=== PATIENT | female | born 1970 | race Caucasian/White ===

== ENCOUNTER 2016-10-25 19:18 | Emergency (ER) | payer MEDICARE, MEDICAID ==
[2016-10-25 19:28] VITALS: BP 158/94
[2016-10-25] MEDS ORDERED: Nitrofurantoin Monohydrate/Macrocrystalline 100 MG Cap PO ONE (19:47)
--- NOTE | 2016-10-25 19:50 | EDM.PDOC ---
ED HPI RENAL/ - General Chief Complaint: Genitourinary Problem Stated Complaint: UTI Time Seen by Provider: 10/25/16 19:35 Source of Information: Reports: Patient, RN notes reviewed - History of Present Illness INITIAL COMMENTS - FREE TEXT/NARRATIVE: 45 year old female with onset of voiding dysuria and frequency a few days ago, worse today., chills, no definite fever, no vomiting or major back discomfort. Hx of previous UTI. - Related Data Allergies/ADRs: Allergies Allergy/AdvReac Type Severity Reaction Status Date / Time acetaminophen [From Percocet] Allergy Hives Verified 10/25/16 19:29 meperidine HCl [From Demerol] Allergy Hives Verified 10/25/16 19:29 mold Allergy Chills Verified 10/25/16 19:29 oxycodone HCl [From Percocet] Allergy Hives Verified 10/25/16 19:29 peanut Allergy Anaphylactic Verified 10/25/16 19:29 Shock pollen extracts Allergy Irritabilit Verified 10/25/16 19:29 y Sulfa (Sulfonamide Allergy Itching Verified 10/25/16 19:29 Antibiotics) erythromycin base AdvReac Vomiting Verified 10/25/16 19:29 [Erythromycin Base] Home Meds: Home Meds Topiramate [Topamax] 100 mg PO DAILY 04/17/14 [History] Montelukast Sodium [Singulair] 10 mg PO DAILY 08/26/14 [History] Albuterol [Proventil Neb Soln] 2.5 mg INH Q6H PRN 01/16/15 [History] Potassium Chloride 10 meq PO BID 01/16/15 [History] traZODone 200 mg PO BEDTIME 01/16/15 [History] Ciclesonide [Omnaris] 1 spray INH BID 05/26/15 [History] EPINEPHrine [Epipen 2-Enrico] 0.3 mg IJ ASDIRECTED #1 ml 05/26/15 [Rx] Naltrexone 5 mg PO BEDTIME 05/29/16 [History] Progerstone Cream 1 gr TOP TID 05/29/16 [History] Nitrofurantoin Monohyd/M-Cryst [Macrobid 100 mg Capsule] 100 mg PO Q12HR #10 capsule 10/25/16 [Rx] Past Medical History HEENT History: Reports: Allergic rhinitis Respiratory History: Reports: Asthma Gastrointestinal History: Reports: Irritable bowel syndrome Genitourinary History: Reports: Other (see below) 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 Musculoskeletal History: Reports: Osteoarthritis Neurological History: Reports: Migraines Endocrine/Metabolic History: Reports: Hypothyroidism - Past Surgical History HEENT Surgical History: Reports: Myringotomy w tube(s), Tonsillectomy GI Surgical History: Reports: Appendectomy Female Surgical History: Reports: Hysterectomy Musculoskeletal Surgical History: Reports: Arthroscopic knee, ORIF Social & Family History - Family History Family Medical History: Noncontributory - Tobacco Use Smoking Status *Q: Never Smoker Second Hand Smoke Exposure: No - Caffeine Use Caffeine Use: Reports: Coffee - Alcohol Use Days Per Week of Alcohol Use: 0 - Recreational Drug Use Recreational Drug Use: No - Living Situation & Occupation Living situation: Reports: single, alone 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 Denies: fever HEENT: Denies: Sinus problem, Throat pain Respiratory: Denies: shortness of breath Cardiovascular: Denies: Chest pain GI/Abdominal: Reports: Nausea (occasional mild). Denies: Abdominal pain, Diarrhea, Vomiting Musculoskeletal: Denies: back pain, joint pain Skin: Reports: no symptoms Neurological: Reports: no symptoms ED EXAM, RENAL/ - Physical Exam Exam: See Below General Appearance: alert, mild distress Throat/Mouth: Normal inspection, Normal oropharynx Head: No: facial swelling Neck: supple, full range of motion Respiratory/Chest: no respiratory distress, lungs clear, normal breath sounds Cardiovascular: regular rate, rhythm Back Exam: No: CVA tenderness (L), CVA tenderness (R) Extremities: normal inspection Neurological: alert, oriented Course - Vital Signs Last Recorded V/S: Last Vital Signs Temp 97.7 F 10/25/16 19:26 Pulse 66 10/25/16 19:26 Resp 16 10/25/16 19:26 BP 158/94 H 10/25/16 19:26 Pulse Ox 100 10/25/16 19:26 - Orders/Labs/Meds Orders: Active Orders 24 hr Category Date Time Status CULTURE URINE [RM] Stat Lab 10/25/16 19:55 Received Labs: Laboratory Tests 10/25/16 Range/Units 19:55 Urine Color Dark yellow (Yellow) Urine Appearance Clear (Clear) Urine pH 7.0 (5.0-8.0) Ur Specific [place] 1.010 (1.005-1.030) Urine Protein Negative (Negative) Urine Glucose (UA) Negative (Negative) Urine Ketones Negative (Negative) Urine Occult Blood Negative (Negative) Urine Nitrite Positive H (Negative) Urine Bilirubin Negative (Negative) Urine Urobilinogen 0.2 (0.2-1.0) Ur Leukocyte Esterase Negative (Negative) Meds: Medications Discontinued Medications Generic Name Dose Route Start Last Admin Trade Name Freq PRN Reason Stop Dose Admin Nitrofurantoin Macrocrystals 100 mg 10/25/16 19:47 10/25/16 19:59 Macrobid PO 10/25/16 19:48 100 mg ONETIME ONE Administration Departure - Departure Time of Disposition: 20:10 Disposition: Home, Self-Care 01 Condition: fair Clinical Impression: UTI, Urinary tract infectious disease Prescriptions: Nitrofurantoin Monohyd/M-Cryst [Macrobid 100 mg Capsule] 100 mg PO Q12HR #10 capsule Instructions: Urinary Tract Infection, Adult, [id number], Urinary Tract Infection, Adult Referrals: Marly Tompkins NP [Primary Care Provider] - Forms: ED Department Discharge Additional Instructions: drink plenty of fluids, continue azo as needed, Macrobid antibiotic twice daily for the next 5 days, you have been given your first dose here in the ED. Follow up clinic if not much better within 2 to 3 days as expected, return to ED if sx worsening in any way. - My Orders Last 24 Hours: My Active Orders 10/25/16 19:55 CULTURE URINE [] Stat - Assessment/Plan Last 24 Hours: My Active Orders 10/25/16 19:55 CULTURE URINE [] Stat
== END 2016-10-25 20:30 | disposition home or self-care (01) ==
LOC: JD.ED 19:18
DX: N39.0 Urinary tract infection, site not specified (principal); J45.909 Unspecified asthma, uncomplicated; M19.90 Unspecified osteoarthritis, unspecified site; E03.9 Hypothyroidism, unspecified; Z79.899 Other long term (current) drug therapy; Z98.890 Other specified postprocedural states; Z90.49 Acquired absence of other specified parts of digestive tract; Z90.710 Acquired absence of both cervix and uterus; Z88.6 Allergy status to analgesic agent; Z91.010 Allergy to peanuts; Z88.2 Allergy status to sulfonamides; Z88.1 Allergy status to other antibiotic agents; Z91.09 Other allergy status, other than to drugs and biological substances
CPT/HCPCS: 81003; 87086; 99284; A9270; 99283

== ENCOUNTER 2016-10-27 14:59 | Emergency (ER) | payer MEDICARE, MEDICAID ==
[2016-10-27] MEDS ORDERED: Sodium Chloride 0.9% 10 ML Syringe FLUSH PRN (15:27)
[2016-10-27] MEDS ORDERED: Ketorolac 30 MG/ML SDV IVPUSH ONE (15:28)
--- NOTE | 2016-10-27 15:42 | EDM.PDOC ---
ED HPI GENERAL MEDICAL PROBLEM - General Chief Complaint: Abdominal Pain Stated Complaint: ABDOMINAL PAIN Time Seen by Provider: 10/27/16 15:20 Source of Information: Reports: Patient History Limitations: Reports: No limitations - History of Present Illness INITIAL COMMENTS - FREE TEXT/NARRATIVE: Patient presents for evaluation and treatment of multiple different complaints. Patient reports that her symptoms started on . She states that she was complaining of a urinary tract infection symptoms. She was seen in our ER and started on Macrobid. Patient reports that since being seen she is not feeling better. She currently is complaining of exhaustion, fevers, chills, decreased appetite, dysuria, bloating, left-sided back pain, left lower quadrant pain, coughing and a sore throat. Patient reports that she has felt warm but she has not taken her temperature at home. She has not had any diarrhea, constipation or vaginal discharge. Her last bowel movement was 2 days ago. 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 She states that she had influenza earlier this year. She did not get a flu vaccine. Patient reports past surgical history partial hysterectomy in 2010. Patient denies any recent sexual activity. She denies any chance of any STDs. Abdomen Pain Score (Numeric/FACES): 10 - Related Data Allergies Allergy/AdvReac Type Severity Reaction Status Date / Time acetaminophen [From Percocet] Allergy Hives Verified 10/27/16 15:14 meperidine HCl [From Demerol] Allergy Hives Verified 10/27/16 15:14 mold Allergy Chills Verified 10/27/16 15:14 oxycodone HCl [From Percocet] Allergy Hives Verified 10/27/16 15:14 peanut Allergy Anaphylactic Verified 10/27/16 15:14 Shock pollen extracts Allergy Irritabilit Verified 10/27/16 15:14 y Sulfa (Sulfonamide Allergy Itching Verified 10/27/16 15:14 Antibiotics) erythromycin base AdvReac Vomiting Verified 10/27/16 15:14 [Erythromycin Base] Home Meds: Home Meds Topiramate [Topamax] 100 mg PO DAILY 04/17/14 [History] Montelukast Sodium [Singulair] 10 mg PO DAILY 08/26/14 [History] Albuterol [Proventil Neb Soln] 2.5 mg INH Q6H PRN 01/16/15 [History] Potassium Chloride 10 meq PO BID 01/16/15 [History] traZODone 200 mg PO BEDTIME 01/16/15 [History] Ciclesonide [Omnaris] 1 spray INH BID 05/26/15 [History] EPINEPHrine [Epipen 2-Enrico] 0.3 mg IJ ASDIRECTED #1 ml 05/26/15 [Rx] Naltrexone 5 mg PO BEDTIME 05/29/16 [History] Progerstone Cream 1 gr TOP TID 05/29/16 [History] Nitrofurantoin Monohyd/M-Cryst [Macrobid 100 mg Capsule] 100 mg PO Q12HR #10 capsule 10/25/16 [Rx] Ciprofloxacin [Ciprofloxacin HCl] 500 mg PO BID #14 tablet 10/27/16 [Rx] Past Medical History HEENT History: Reports: Allergic rhinitis Respiratory History: Reports: Asthma Gastrointestinal History: Reports: Irritable bowel syndrome Genitourinary History: Reports: UTI, recurrent 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 Musculoskeletal History: Reports: Osteoarthritis Neurological History: Reports: Migraines Endocrine/Metabolic History: Reports: Hypothyroidism - Past Surgical History HEENT Surgical History: Reports: Myringotomy w tube(s), Tonsillectomy GI Surgical History: Reports: Appendectomy Female Surgical History: Reports: Hysterectomy Musculoskeletal Surgical History: Reports: Arthroscopic knee, ORIF Social & Family History - Family History Family Medical History: Noncontributory - Tobacco Use Smoking Status *Q: Former Smoker Second Hand Smoke Exposure: No - Caffeine Use Caffeine Use: Reports: Coffee - Alcohol Use Days Per Week of Alcohol Use: 0 - Recreational Drug Use Recreational Drug Use: No - Living Situation & Occupation Living situation: Reports: single, alone 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 Denies: Constipation, Diarrhea, Nausea, Vomiting : Reports: flank pain. Denies: hematuria Musculoskeletal: Reports: back pain Neurological: Reports: headache ED EXAM, GENERAL - Physical Exam Exam: See Below Exam Limited By: No limitations General Appearance: alert, WD/WN, no apparent distress Ears: normal external exam, normal canal, hearing grossly normal, normal TMs Nose: normal inspection Throat/Mouth: Normal inspection, Normal lips, Normal teeth, Normal gums, Normal oropharynx, Normal voice, No airway compromise Neck: normal inspection. No: lymphadenopathy (L), lymphadenopathy (R) Respiratory/Chest: no respiratory distress, lungs clear, normal breath sounds Cardiovascular: normal peripheral pulses, regular rate, rhythm, no murmur GI/Abdominal: normal bowel sounds, soft, non tender Back Exam: normal inspection. No: CVA tenderness (L), CVA tenderness (R) Neurological: alert, oriented, normal cognition Psychiatric: normal affect, normal mood Skin Exam: Warm, Dry, Normal color Course - Vital Signs Last Recorded V/S: Last Vital Signs Temp 35.8 C 10/27/16 15:11 Pulse 60 10/27/16 17:30 Resp 12 10/27/16 17:30 BP 125/81 10/27/16 17:30 Pulse Ox 100 10/27/16 17:30 - Orders/Labs/Meds Labs: Laboratory Tests 10/27/16 10/27/16 10/27/16 Range/Units 15:17 15:17 16:15 WBC 11.73 H (3.98-10.04) K/mm3 RBC 4.17 (3.98-5.22) M/mm3 Hgb 13.4 (11.2-15.7) gm/L Hct 40.9 (34.1-44.9) % MCV 98.1 H (79.4-94.8) fl MCH 32.1 (25.6-32.2) pg MCHC 32.8 (32.2-35.5) g/dl RDW Std Deviation 43.3 (36.4-46.3) fL Plt Count 249 (182-369) K/mm3 MPV 10.5 (9.4-12.3) fl Neutrophils % (Manual) 69 H (40-60) % Band Neutrophils % 0 (0-10) % Lymphocytes % (Manual) 25 (20-40) % Atypical Lymphs % 0 % Monocytes % (Manual) 6 (2-10) % Eosinophils % (Manual) 0 L (0.7-5.8) % Basophils % (Manual) 0 L (0.1-1.2) Platelet Estimate Adequate Plt Morphology Comment Normal RBC Morph Comment Normal Sodium 143 (136-145) mEq/L Potassium 3.2 L (3.5-5.1) mEq/L Chloride 108 H (98-107) mEq/L Carbon Dioxide 27 (21-32) mEq/L Anion Gap 11.2 (5-15) BUN 15 (7-18) mg/dL Creatinine 0.7 (0.55-1.02) mg/dL Est Cr Clr Drug Dosing TNP Estimated GFR (MDRD) > 60 (>60) mL/min BUN/Creatinine Ratio 21.4 H (14-18) Glucose 63 L (74-106) mg/dL Calcium 8.7 (8.5-10.1) mg/dL Total Bilirubin 0.2 (0.2-1.0) mg/dL AST 10 L (15-37) U/L ALT 27 (14-59) U/L Alkaline Phosphatase 27 L (46-116) U/L C-Reactive Protein < 0.2 (<1.0) mg/dL Total Protein 6.5 (6.4-8.2) g/dl Albumin 3.7 (3.4-5.0) g/dl Globulin 2.8 gm/dL Albumin/Globulin Ratio 1.3 (1-2) Lipase 235 (73-393) U/L Urine Color Yellow (Yellow) Urine Appearance Cloudy H (Clear) Urine pH 7.5 (5.0-8.0) Ur Specific [place] 1.020 (1.005-1.030) Urine Protein Negative (Negative) Urine Glucose (UA) Negative (Negative) Urine Ketones Negative (Negative) Urine Occult Blood Negative (Negative) Urine Nitrite Positive H (Negative) Urine Bilirubin Negative (Negative) Urine Urobilinogen 0.2 (0.2-1.0) Ur Leukocyte Esterase Negative (Negative) Urine RBC 0-5 (0-5) /hpf Urine WBC 0-5 (0-5) /hpf Ur Epithelial Cells 0-5 (0-5) /hpf Amorphous Sediment Many H (NOT SEEN) /hpf Urine Bacteria Moderate H (FEW) /hpf Urine Mucus Not seen (FEW) /hpf Meds: Medications Discontinued Medications Generic Name Dose Route Start Last Admin Trade Name Freq PRN Reason Stop Dose Admin Ketorolac Tromethamine 30 mg 10/27/16 15:28 10/27/16 15:36 Toradol IVPUSH 10/27/16 15:29 30 mg ONETIME ONE Administration Sodium Chloride 10 ml 10/27/16 15:27 10/27/16 15:36 Saline Flush FLUSH 10 ml ASDIRECTED PRN Administration Keep Vein Open - Radiology Interpretation Free Text/Narrative:: Chest xray shows a small effusion to the left costophrenic angle; no acute changes, no change from recent chest xray - Re-Assessments/Exams Free Text/Narrative Re-Assessment/Exam: 10/27/16 17:16 Lab studies have returned. It When blood cell count is mildly elevated at 11.73 with no bandemia, hemoglobin 13.4 and platelets are 249. CRP is within normal limits at less than 0.2. Lipase is 235. Sodium is 143, potassium is 3.2 and chloride is 108. Anion gap is 11.2. Glucose is 63. UA is positive for nitrates and moderate bacteria. Negative leuks. Strep is a [place]. I reviewed the chest x-ray and lab results with the patient. She is currently taking Pyridium which may have caused the false nitrates but does not explain the moderate amount of bacteria seen. Reviewing her previous urine cultures she has always had mixed contamination. I did give her some crackers and juice in the ER for her low blood sugar. Given her symptoms I am concerned that she may be developing a kidney infection I will switch her from Macrobid to Cipro and have her followup with her primary care provider this week. I will also start her on Flagyl for few clue so seen on wet prep. Will discharge home at this time. Departure - Departure Time of Disposition: 17:14 Disposition: Home, Self-Care 01 Condition: fair Clinical Impression: UTI, Urinary tract infectious disease Prescriptions: Ciprofloxacin [Ciprofloxacin HCl] 500 mg PO BID #14 tablet Instructions: Urinary Tract Infection, Adult Referrals: Marly Tompkins NP [Primary Care Provider] - Forms: ED Department Discharge, Return to Work/School Form Additional Instructions: Rest and drink plenty of fluids. Stop the macrobid. Start the ciprofloxacin 1 tab PO bid x 7 days. OTC tylenol or motrin as needed for pain relief. Follow-up with PCP this week. Please return to the ER should your symptoms change or worsen.
[2016-10-27 17:41] VITALS: BP 125/81
--- NOTE | 2016-10-29 07:15 | CR ---
Chest: Portable view of the chest was obtained. Comparison: Previous chest x-ray of 08/21/16. Blunting of the lateral left costophrenic angle is seen which remains stable from previous chest x-ray. No acute infiltrates are seen within either lung. Heart size and mediastinum are within normal limits for portable technique. Impression: 1. Stable blunting of the lateral left costophrenic angle. 2. Nothing acute is identified on portable chest x-ray. Diagnostic code #2
== END 2016-10-27 17:30 | disposition home or self-care (01) ==
LOC: JD.ED 14:59
DX: N39.0 Urinary tract infection, site not specified (principal); E03.9 Hypothyroidism, unspecified; Z88.6 Allergy status to analgesic agent; Z88.5 Allergy status to narcotic agent; Z88.2 Allergy status to sulfonamides; Z88.8 Allergy status to other drugs, medicaments and biological substances; Z91.010 Allergy to peanuts; Z79.899 Other long term (current) drug therapy; Z90.49 Acquired absence of other specified parts of digestive tract; Z90.710 Acquired absence of both cervix and uterus; Z98.890 Other specified postprocedural states; Z87.891 Personal history of nicotine dependence
CPT/HCPCS: 36415; 71010; 80053; 81001; 83690; 85025; 86140; 87081; 87086; 87210; 87430; 87808; 96374; 99284; J1885; J7050

== ENCOUNTER 2016-11-16 10:51 | Day surgery (SDC) | payer MEDICARE, MEDICAID ==
[~2016-11-16 10:51] MED LIST: Dexamethasone 4 MG/ML 5 ML MDV ONE; Lidocaine 1% 4 ML ONE; Lidocaine 1%/Sod Bicarbonate in NS 8.4% 1 ML Syringe IV PRN; Midazolam 1 MG/ML 2 ML SDV ONE; Ondansetron 4 MG/2 ML SDV ONE; Propofol 200 MG/20 ML SDV ONE; Rocuronium 50 MG/5 ML Vial ONE; Sodium Chloride 0.9% 10 ML Syringe FLUSH PRN; fentaNYL 250 MCG/5 ML SDV ONE
[2016-11-16] MEDS ORDERED: Bupivacaine 0.5% 30 ML SDV ONE (11:04)
[2016-11-16] MEDS: Lactated Ringers 1,000 ML IV SCH ×2 (11:20→13:33)
--- NOTE | 2016-11-16 11:22 | PCM.PREANE ---
Preanesthetic Assessment - Physical Assessment Height: 1.55 m Weight: 47.627 kg - Allergies Allergies/Adverse Reactions: Allergies Allergy/AdvReac Type Severity Reaction Status Date / Time acetaminophen [From Percocet] Allergy Hives Verified 11/15/16 16:00 egg Allergy Cannot Verified 11/15/16 16:00 Remember meperidine HCl [From Demerol] Allergy Hives Verified 11/15/16 16:00 mold Allergy Chills Verified 11/15/16 16:00 oxycodone HCl [From Percocet] Allergy Hives Verified 11/15/16 16:00 peanut Allergy Anaphylactic Verified 11/15/16 16:00 Shock pollen extracts Allergy Irritabilit Verified 11/15/16 16:00 y Sulfa (Sulfonamide Allergy Itching Verified 11/15/16 16:00 Antibiotics) erythromycin base AdvReac Vomiting Verified 11/15/16 16:00 [Erythromycin Base] PreAnesthesia Questionnaire HEENT History: Reports: Allergic rhinitis, Impaired vision, Other (see below) Other HEENT History: wears glasses Cardiovascular History: Reports: None Respiratory History: Reports: Asthma Gastrointestinal History: Reports: Irritable bowel syndrome Genitourinary History: Reports: UTI, recurrent 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 Musculoskeletal History: Reports: Osteoarthritis Neurological History: Reports: Migraines, Seizure (as a child, last one was when she was 16) Psychiatric History: Reports: None Endocrine/Metabolic History: Reports: Hypothyroidism Hematologic History: Reports: None Immunologic History: Reports: None Oncologic (Cancer) History: Reports: None Dermatologic History: Reports: None - Past Surgical History Head Surgeries/Procedures: Reports: None HEENT Surgical History: Reports: Myringotomy w tube(s), Tonsillectomy GI Surgical History: Reports: Appendectomy, Colonoscopy Female Surgical History: Reports: Hysterectomy Musculoskeletal Surgical History: Reports: Arthroscopic knee, ORIF - SUBSTANCE USE Smoking Status *Q: Never Smoker Second Hand Smoke Exposure: No Days Per Week of Alcohol Use: 0 Recreational Drug Use History: No - HOME MEDS Home Medications: Home Meds Topiramate [Topamax] 200 mg PO DAILY 04/17/14 [History] Montelukast Sodium [Singulair] 10 mg PO DAILY 08/26/14 [History] Albuterol [Proventil Neb Soln] 2.5 mg INH Q6H PRN 01/16/15 [History] Potassium Chloride 10 meq PO BID 01/16/15 [History] traZODone 200 mg PO BEDTIME 01/16/15 [History] Ciclesonide [Omnaris] 1 spray INH BID 05/26/15 [History] EPINEPHrine [Epipen 2-Enrico] 0.3 mg IJ ASDIRECTED #1 ml 05/26/15 [Rx] Naltrexone 5 mg PO BEDTIME 05/29/16 [History] Progerstone Cream 1 gr TOP TID 05/29/16 [History] Albuterol Sulfate [Proair Hfa] 1 - 2 puff INH Q4H PRN 11/15/16 [History] Testosterone Cream 1 applic TOP DAILY 11/15/16 [History] - CURRENT (IN HOUSE) MEDS Current Meds: Current Medications Discontinued Medications Bupivacaine HCl (Marcaine 0.5%) Confirm Administered Dose 30 ml .ROUTE .STK-MED ONE Stop: 11/16/16 11:05 Cefazolin Sodium (Ancef) Confirm Administered Dose 2 gm .ROUTE .STK-MED ONE Stop: 11/16/16 11:25 Dexamethasone (Dexamethasone) Confirm Administered Dose 20 mg .ROUTE .STK-MED ONE Stop: 11/16/16 10:11 Fentanyl (Sublimaze) Confirm Administered Dose 250 mcg .ROUTE .STK-MED ONE Stop: 11/16/16 10:09 Lactated Ringer's (Ringers, Lactated) 1,000 mls @ 125 mls/hr IV ASDIRECTED GUERA Stop: 11/15/16 23:00 Lidocaine HCl (Xylocaine-Mpf 1%) Confirm Administered Dose 4 mls @ as directed .ROUTE .STK-MED ONE Stop: 11/16/16 10:10 Lidocaine/Sodium Bicarbonate (Buffered Lidocaine 1% In Ns 8.4%) 0.25 ml IV ONETIME PRN PRN Reason: Prior to IV Start Stop: 11/15/16 18:00 Midazolam HCl (Versed 1 Mg/Ml) Confirm Administered Dose 2 mg .ROUTE .STK-MED ONE Stop: 11/16/16 10:09 Ondansetron HCl (Zofran) Confirm Administered Dose 4 mg .ROUTE .STK-MED ONE Stop: 11/16/16 10:09 Propofol (Diprivan 20 Ml) Confirm Administered Dose 200 mg .ROUTE .STK-MED ONE Stop: 11/16/16 10:09 Rocuronium [place] (Zemuron) Confirm Administered Dose 50 mg .ROUTE .STK-MED ONE Stop: 11/16/16 10:09 Sodium Chloride (Saline Flush) 10 ml FLUSH ASDIRECTED PRN PRN Reason: Keep Vein Open Stop: 11/15/16 18:00 Preanesthetic Assessment - ANESTHESIA/TRANSFUSION/FAMILY HX Anesthesia/Transfusion History: No Prior Transfusion(s), Prior Anesthesia Type of Anesthesia Reaction: Reports: Excessive Nausea/Vomiting Family History of Anesthesia Reaction: No Intubation History: Unknown Type of Transfusion Reactions: Reports: Unknown - REVIEW OF SYSTEMS Constitutional: Reports: no symptoms 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 (hx of seizures, last one was when she was 16, hx of migraines ) Respiratory: Reports: no symptoms (asthma (uses inhalers as needed)) Cardiovascular: Reports: no symptoms GI: Reports: no symptoms Other: Reports: None, Thyroid Problems (hypothyroisism in the past ) - PHYSICAL ASSESSMENT HR: 84 O2 Sat by Pulse Oximetry: 100 RR: 16 BP: 118/84 Temp: 37.3 C Height: 1.55 m Weight: 47.627 kg NPO Status Date: 11/16/16 NPO Status Time: 03:00 ASA Class: 2 Mental Status: Alert & Oriented x3 Airway Class: Mallampati = 2 Dentition: Reports: Normal Dentition Thyro-Mental Finger Breadths: 3 Mouth Opening Finger Breadths: 3 ROM/Head Extension: Full Respiratory Status: lungs clear to auscultation bilaterally Cardiovascular Status: regular rate & rhythm, normal S1, S2, no murmur, blood pressure WNL - ALLERGIES Allergies/Adverse Reactions: Allergies Allergy/AdvReac Type Severity Reaction Status Date / Time acetaminophen [From Percocet] Allergy Hives Verified 11/15/16 16:00 egg Allergy Cannot Verified 11/15/16 16:00 Remember meperidine HCl [From Demerol] Allergy Hives Verified 11/15/16 16:00 mold Allergy Chills Verified 11/15/16 16:00 oxycodone HCl [From Percocet] Allergy Hives Verified 11/15/16 16:00 peanut Allergy Anaphylactic Verified 11/15/16 16:00 Shock pollen extracts Allergy Irritabilit Verified 11/15/16 16:00 y Sulfa (Sulfonamide Allergy Itching Verified 11/15/16 16:00 Antibiotics) erythromycin base AdvReac Vomiting Verified 11/15/16 16:00 [Erythromycin Base] - BLOOD Blood Available: No Product(s) Available: None - ANESTHESIA PLAN Preop Beta Juan David: No Anesthesia Type Planned: General Anesthesia - ACKNOWLEDGEMENTS Pt an Appropriate Candidate for the Planned Anesthesia: Yes Alternatives and Risks of Anesthesia Discussed w Pt/Guardian: Yes Pt/Guardian Understands and Agrees with Anesthesia Plan: Yes
[2016-11-16] MEDS ORDERED: ceFAZolin 1 GM Vial ONE (11:24)
[2016-11-16] MEDS ORDERED: Scopolamine 1.5 MG Transdermal Patch TRDERM ONE (11:55)
[2016-11-16] MEDS ORDERED: HYDROmorphone 1 MG/ML Syringe ONE (12:22)
[2016-11-16] MEDS ORDERED: Neostigmine Methylsulfate 1 MG/ML 5 ML Syringe ONE (12:29)
[2016-11-16] MEDS ORDERED: Ondansetron 4 MG/2 ML SDV IVPUSH PRN ×2 (12:31→12:44)
--- NOTE | 2016-11-16 12:41 | PCM.OPNOTE ---
- General Post-Op/Procedure Note Date of Surgery/Procedure: 11/16/16 Operative Procedure(s): Laparoscopy, lysis of pelvic adhesions Findings: Omental adhesions throughout the entire pelvis. This right to left side involving the vaginal cuff lower right and left pelvic sidewall. The ovaries both appeared to be normal. Varicosities noted on the right side. Posterior cul- de-sac and anterior cul-de-sac otherwise without significant problems. Appendix appeared to be surgically absent the small stump appeared to be present. Gallbladder appeared intact and noninflamed as did the liver edges. Pre Op Diagnosis: Pelvic pain, left adnexal cyst Post-Op Diagnosis: Pain, pelvic adhesions. Normal-appearing ovaries, varicosities right adnexal area Anesthesia Technique: General ET tube Other Anesthesia Type: Marcaine 0.5%-5 cc in each incision site Primary Surgeon: Zeeshan Montes De Oca Secondary Surgeon: Selam Starks Anesthesia Provider: Zion Gonzalez Customer Service Correspondence Clerk: Jasmin Garibay Fluid Replacement, Intraop: 700 EBL in mLs: 5 Drain/Tube Comments:: Indwelling bladder catheter during the procedure only. Removed at the end of the case. Complications: None Condition: Good Free Text/Narrative:: Surgery duration: 25 minutes Complications: None. Specimens: None Procedure: The patient was taken to the operating room and placed in a supine position on the operating table. She received Ancef 2 g IV preoperatively and had sequential compression stockings in place for DVT prophylaxis. After adequate endotracheal anesthesia patient was placed in a dorsal lithotomy position. Indwelling bladder catheter was placed as was a stick sponge in the vagina. Patient is status post hysterectomy. The patient was repositioned to a more supine position and laparoscopy was performed. The infraumbilical and suprapubic port sites were developed with Marcaine infiltration-approximately 3-5 cc at each site. The Verres needle was placed through a 5 mm incision is infraumbilical site and pneumoperitoneum was established using approximately 2 L of CO2. Laparoscopic port site and was then placed without problems. Under direct visualization the suprapubic port was established. A 5 mm left lateral port site was also placed under direct vision visualization. Mental adhesions were noted as described above. The Endoseal device was then used to take down the omental adhesions. This was done without any concern. The right and left ovaries were easily visualized and were found to be essentially normal. The remainder of the anatomic evaluation was performed and the at this time procedures discontinued. Sponge instrument count were correct. The lower and left side ports were removed under direct visualization. Pneumoperitoneum was reversed. All incisions were closed with a single interrupted subcutaneous stitch of 3-0 Monocryl. They were further approximated with Dermabond skin glue. The indwelling catheter was removed and the sponge stick was. Patient was awakened from general endotracheal anesthesia and was discharged from the operating room in good condition.
[2016-11-16] MEDS ORDERED: HYDROmorphone 0.5 MG/0.5 ML Syringe IVPUSH PRN (12:44)
[2016-11-16] MEDS ORDERED: fentaNYL 100 MCG/2 ML SDV IVPUSH PRN (12:44)
--- NOTE | 2016-11-16 12:44 | PCM.POSTAN ---
POST ANESTHESIA ASSESSMENT - MENTAL STATUS Mental Status: somnolent - VITAL SIGNS Pulse Rate: 84 SaO2: 100 Resp Rate: 15 Blood Pressure: 137/87 Temperature: 36.1 C - RESPIRATORY Respiratory Status: respiratory rate WNL, airway patent, O2 saturation stable, supplemental oxygen - CARDIOVASCULAR CV Status: pulse rate WNL, blood pressure stable - GASTROINTESTINAL GI Status: no symptoms - PAIN Pain Score: 0 - POST OP HYDRATION Hydration Status: adequate & stable
--- NOTE | 2016-11-16 13:24 | PCM48HPAN ---
Post Anesthesia Note - EVALUATION WITHIN 48HRS OF ANESTHETIC Vital Signs in Normal Range: Yes Patient Participated in Evaluation: Yes Respiratory Function Stable: Yes Airway Patent: Yes Cardiovascular Function Stable: Yes Hydration Status Stable: Yes Pain Control Satisfactory: Yes Nausea and Vomiting Control Satisfactory: Yes Mental Status Recovered: Yes
[2016-11-16] MEDS ORDERED: traMADol 50 MG Tab PO ONE (13:26)
[2016-11-16] MEDS ORDERED: Ketorolac 30 MG/ML SDV IVPUSH ONE (13:45)
[2016-11-16 14:55] VITALS: BP 113/77
== END 2016-11-16 15:05 | disposition home or self-care (01) ==
LOC: JD.SDS 10:51
PROVIDERS: ATTEND Obstetrics & Gynecology
DX: N73.6 Female pelvic peritoneal adhesions (postinfective) (principal); J45.909 Unspecified asthma, uncomplicated; E03.9 Hypothyroidism, unspecified; Z88.1 Allergy status to other antibiotic agents; Z91.010 Allergy to peanuts; Z91.012 Allergy to eggs; Z88.8 Allergy status to other drugs, medicaments and biological substances; J30.1 Allergic rhinitis due to pollen; Z90.49 Acquired absence of other specified parts of digestive tract; Z90.710 Acquired absence of both cervix and uterus; Z98.890 Other specified postprocedural states; Z87.891 Personal history of nicotine dependence
CPT/HCPCS: 44180; A9270; J0690; J1100; J1170; J1885; J2250; J2405; J2710; J3010; J7120; 00840; J2704

== ENCOUNTER 2017-11-11 17:04 | Emergency (ER) | payer MEDICARE, MEDICAID ==
[2017-11-11 17:16] VITALS: BP 121/74
--- NOTE | 2017-11-11 18:36 | CR ---
Chest: Portable view of the chest was obtained. Comparison: Prior chest x-ray of 01/08/17. Chronic pleural thickening is seen within the lateral left costophrenic angle. No acute parenchymal change is seen. Heart size and mediastinum are normal. Bony structures are within normal limits for the patient's. Surgical clips are noted from prior cholecystectomy. Impression: 1. Incidental findings. Nothing acute is appreciated on frontal chest x-ray. Diagnostic code #2
--- NOTE | 2017-11-11 18:38 | EDM.PDOC ---
ED HPI GENERAL MEDICAL PROBLEM - General Chief Complaint: Respiratory Problem Stated Complaint: CHEST PAIN Time Seen by Provider: 11/11/17 17:27 Source of Information: Reports: Patient, RN Notes Reviewed - History of Present Illness INITIAL COMMENTS - FREE TEXT/NARRATIVE: 46-year-old female that had influenza about 4-5 weeks ago. She was finally getting better to where the cough was going away about 7-10 days ago. Now about 3-4 days ago she started in once again with cough congestion, some nasal and sinus drainage and scratchy throat. Does have pain anterior chest with coughing. She does feel some pain at times with deep inspiration. No recent fever or chills. She had taken a course of Biaxin about 2-3 weeks ago and then started another course of Biaxin about 4-5 days ago but states she is getting worse symptomatically in spite of being on the Biaxin antibiotic second go around. She also now is getting a metallic taste in her mouth and states it is starting to upset her stomach. 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: Other (see below) Other Treatments ENVIRONMENTAL SCIENCE TECHNICIAN: Biaxiin Left Chest Pain Score (Numeric/FACES): 7 - Related Data Allergies Allergy/AdvReac Type Severity Reaction Status Date / Time acetaminophen [From Percocet] Allergy Hives Verified 11/16/16 11:26 egg Allergy Cannot Verified 11/16/16 11:26 Remember meperidine HCl [From Demerol] Allergy Hives Verified 11/16/16 11:26 oxycodone HCl [From Percocet] Allergy Hives Verified 11/16/16 11:26 peanut Allergy Anaphylactic Verified 11/16/16 11:26 Shock Sulfa (Sulfonamide Allergy Itching Verified 11/16/16 11:26 Antibiotics) wheat Allergy Joint Pain Verified 11/11/17 17:16 erythromycin base AdvReac Vomiting Verified 11/16/16 11:26 [Erythromycin Base] mold AdvReac Chills Verified 11/16/16 12:01 pollen extracts AdvReac Irritabilit Verified 11/16/16 12:01 y Home Meds: Home Meds Topiramate [Topamax] 200 mg PO DAILY 04/17/14 [History] Montelukast Sodium [Singulair] 10 mg PO DAILY 08/26/14 [History] Albuterol [Proventil Neb Soln] 2.5 mg INH Q6H PRN 01/16/15 [History] Potassium Chloride 10 meq PO BID 01/16/15 [History] traZODone 200 mg PO BEDTIME 01/16/15 [History] Ciclesonide [Omnaris] 1 spray INH BID 05/26/15 [History] EPINEPHrine [Epipen 2-Enrico] 0.3 mg IJ ASDIRECTED #1 ml 05/26/15 [Rx] Naltrexone 5 mg PO BEDTIME 05/29/16 [History] Albuterol Sulfate [Proair Hfa] 1 - 2 puff INH Q4H PRN 11/15/16 [History] Doxycycline [Vibramycin] 100 mg PO BID #14 cap 11/11/17 [Rx] Fluticasone/Vilanterol [Breo Ellipta 200-25 Mcg INH] 2 puff INH DAILY 11/11/17 [ History] Progesterone,Micronized [Crinone] 1 applic TOP DAILY 11/11/17 [History] Testosterone [Androgel] 1 applic TOP DAILY 11/11/17 [History] Past Medical History HEENT History: Reports: Allergic Rhinitis Other HEENT History: wears glasses Cardiovascular History: Reports: None Respiratory History: Reports: Asthma Gastrointestinal History: Reports: Irritable Bowel Syndrome Genitourinary History: Reports: UTI, Recurrent 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: Endometriosis Musculoskeletal History: Reports: Osteoarthritis Neurological History: Reports: Migraines, Seizure Psychiatric History: Reports: None Endocrine/Metabolic History: Reports: Hypothyroidism Hematologic History: Reports: None Immunologic History: Reports: None Oncologic (Cancer) History: Reports: None Dermatologic History: Reports: None - Past Surgical History Head Surgeries/Procedures: Reports: None HEENT Surgical History: Reports: Myringotomy w Tube(s), Tonsillectomy Musculoskeletal Surgical History: Reports: Arthroscopic Knee, ORIF Social & Family History - Family History Family Medical History: Noncontributory - Tobacco Use Smoking Status *Q: Never Smoker Second Hand Smoke Exposure: No - Caffeine Use Caffeine Use: Reports: Coffee - Alcohol Use Days Per Week of Alcohol Use: 0 - Recreational Drug Use Recreational Drug Use: No Drug Use in Last 12 Months: No - Living Situation & Occupation Living situation: Reports: Single, Alone Occupation: Employed ED ROS GENERAL - Review of Systems Review Of Systems: See Below Constitutional: Denies: Fever, Chills HEENT: Reports: Rhinitis, Throat Pain Respiratory: Reports: Pleuritic Chest Pain, Cough, Sputum (scant). Denies: Shortness of Breath, Wheezing Cardiovascular: Reports: Chest Pain (with coughing) GI/Abdominal: Reports: Abdominal Pain (Upper mid abdominal) Musculoskeletal: Reports: No Symptoms Skin: Reports: No Symptoms Neurological: Reports: No Symptoms ED EXAM, GENERAL - Physical Exam Exam: See Below General Appearance: Alert, No Apparent Distress Nose: Normal Inspection Throat/Mouth: Normal Inspection, Normal Oropharynx Head: No: Facial Tenderness Neck: Supple, Full Range of Motion. No: Lymphadenopathy (L), Lymphadenopathy (R ) Respiratory/Chest: No Respiratory Distress, Lungs Clear, Normal Breath Sounds. No: Rhonchi, Wheezing Cardiovascular: Regular Rate, Rhythm Neurological: Alert, Oriented Skin Exam: Warm, Dry, Normal Color Course - Vital Signs Last Recorded V/S: Last Vital Signs Temp 97.9 F 11/11/17 17:14 Pulse 77 11/11/17 17:14 Resp 20 11/11/17 17:14 BP 121/74 11/11/17 17:14 Pulse Ox 100 11/11/17 17:14 - Re-Assessments/Exams Free Text/Narrative Re-Assessment/Exam: 11/11/17 18:44 Chest x-ray normal, no acute infiltrate, discharge instructions as documented. Departure - Departure Time of Disposition: 18:34 Disposition: Home, Self-Care 01 Condition: Fair Clinical Impression: Upper respiratory infection Qualifiers: URI type: unspecified viral URI Qualified Code(s): J06.9 - Acute upper respiratory infection, unspecified - Discharge Information Prescriptions: Doxycycline [Vibramycin] 100 mg PO BID #14 cap Referrals: Marly Tompkins NP [Primary Care Provider] - Forms: ED Department Discharge Additional Instructions: Continue vaporizer or 16 for cough and congestion as needed, you may take Tylenol or ibuprofen as needed for discomfort, continue vitamin C or multivitamin. Stop the Biaxin. Symptoms should gradually start getting better over the next 3-4 days, if the cough or sinus drainage becomes much worse and much more colored then consider starting the doxycycline, prescription provided for 100 mg twice daily to take only if symptoms worsening as described.
== END 2017-11-11 18:49 | disposition home or self-care (01) ==
LOC: JD.ED 17:04
DX: J06.9 Acute upper respiratory infection, unspecified (principal); E03.9 Hypothyroidism, unspecified; Z91.012 Allergy to eggs; Z88.6 Allergy status to analgesic agent; Z88.5 Allergy status to narcotic agent; Z88.2 Allergy status to sulfonamides; Z91.010 Allergy to peanuts; Z88.1 Allergy status to other antibiotic agents; Z91.048 Other nonmedicinal substance allergy status; Z79.899 Other long term (current) drug therapy
CPT/HCPCS: 71045; 71045-26; 99283; 99284

== ENCOUNTER 2017-12-04 17:54 | Emergency (ER) | payer MEDICARE, MEDICAID | END 2017-12-04 18:09 | disposition left against medical advice (07) | LOC: JD.ED 17:54 | DX: Z53.21 Procedure and treatment not carried out due to patient leaving prior to being seen by health care provider (principal) ==

== ENCOUNTER 2017-12-12 08:42 | Emergency (ER) | payer MEDICARE, MEDICAID ==
[2017-12-12 08:52] VITALS: BP 104/70
[2017-12-12] MEDS ORDERED: Sodium Chloride 0.9% 10 ML Syringe FLUSH PRN (09:25)
--- NOTE | 2017-12-12 09:34 | EDM.PDOC ---
<Shanice Farrellsea - Last Filed: 12/12/17 09:29> ED HPI GENERAL MEDICAL PROBLEM - General Chief Complaint: Lower Extremity Injury/Pain Stated Complaint: SEPTIC KNEE SENT BY [facility]STENS[facility] Time Seen by Provider: 12/12/17 09:18 Source of Information: Reports: Patient History Limitations: Reports: No Limitations - History of Present Illness INITIAL COMMENTS - FREE TEXT/NARRATIVE: Patient is a 46 YO female who presents today for left knee pain. She states she had a synvisc injection 10 days ago. She has gotten these before with no complications. She states the left knee is swollen and very painful. The pain is getting worse and she is not able to bare full weight. She started developing sweats and chills this morning but no recorded fever. 3 days ago she developed a cough, nausea, abdominal pain and malaise. She states she has felt constipated with her last BM 4 days ago. Left Knee Pain Score (Numeric/FACES): 10 - Related Data Allergies Allergy/AdvReac Type Severity Reaction Status Date / Time acetaminophen [From Percocet] Allergy Hives Verified 12/12/17 08:52 egg Allergy Cannot Verified 12/12/17 08:52 Remember meperidine HCl [From Demerol] Allergy Hives Verified 12/12/17 08:52 oxycodone HCl [From Percocet] Allergy Hives Verified 12/12/17 08:52 peanut Allergy Anaphylactic Verified 12/12/17 08:52 Shock Sulfa (Sulfonamide Allergy Itching Verified 12/12/17 08:52 Antibiotics) wheat Allergy Joint Pain Verified 12/12/17 08:52 erythromycin base AdvReac Vomiting Verified 12/12/17 08:52 [Erythromycin Base] mold AdvReac Chills Verified 12/12/17 08:52 pollen extracts AdvReac Irritabilit Verified 12/12/17 08:52 y Home Meds: Home Meds Topiramate [Topamax] 200 mg PO BEDTIME 04/17/14 [History] Montelukast Sodium [Singulair] 10 mg PO DAILY 08/26/14 [History] Potassium Chloride 10 meq PO BID 01/16/15 [History] traZODone 200 mg PO BEDTIME 01/16/15 [History] EPINEPHrine [Epipen 2-Enrico] 0.3 mg IJ ASDIRECTED #1 ml 05/26/15 [Rx] Naltrexone 4.5 mg PO BEDTIME 05/29/16 [History] Albuterol Sulfate [Proair Hfa] 1 - 2 puff INH Q4H PRN 11/15/16 [History] Progesterone,Micronized [Crinone] 1 applic TOP DAILY 11/11/17 [History] Testosterone [Androgel] 1 applic TOP DAILY 11/11/17 [History] Cetirizine [ZyrTEC] 1 tab PO DAILY 12/12/17 [History] Past Medical History HEENT History: Reports: Allergic Rhinitis Other HEENT History: wears glasses Cardiovascular History: Reports: None Respiratory History: Reports: Asthma Gastrointestinal History: Reports: Irritable Bowel Syndrome Genitourinary History: Reports: UTI, Recurrent GLUE BONE DRIER History: Reports: Endometriosis Musculoskeletal History: Reports: Osteoarthritis Neurological History: Reports: Migraines, Seizure Psychiatric History: Reports: None Endocrine/Metabolic History: Reports: Hypothyroidism Hematologic History: Reports: None Immunologic History: Reports: None Oncologic (Cancer) History: Reports: None Dermatologic History: Reports: None - Past Surgical History Head Surgeries/Procedures: Reports: None HEENT Surgical History: Reports: Myringotomy w Tube(s), Tonsillectomy Musculoskeletal Surgical History: Reports: Arthroscopic Knee, ORIF Social & Family History - Family History Family Medical History: Noncontributory - Tobacco Use Smoking Status *Q: Never Smoker Second Hand Smoke Exposure: No - Caffeine Use Caffeine Use: Reports: Coffee - Alcohol Use Days Per Week of Alcohol Use: 0 - Recreational Drug Use Recreational Drug Use: No Drug Use in Last 12 Months: No - Living Situation & Occupation Living situation: Reports: Single, Alone Occupation: Employed Review of Systems - Review of Systems Review Of Systems: See Below Constitutional: Reports: Chills, Diaphoresis Respiratory: Reports: Cough Cardiovascular: Reports: No Symptoms GI/Abdominal: Reports: Abdominal Pain, Constipation Musculoskeletal: Reports: Joint Pain (left knee), Joint Swelling (left knee) Skin: Reports: No Symptoms Neurological: Reports: No Symptoms Psychiatric: Reports: No Symptoms ED EXAM, GENERAL - Physical Exam Exam: See Below Exam Limited By: No Limitations General Appearance: Alert, WD/WN, No Apparent Distress Respiratory/Chest: No Respiratory Distress, Lungs Clear, Normal Breath Sounds Cardiovascular: Normal Peripheral Pulses, Regular Rate, Rhythm, No Murmur Peripheral Pulses: 4+: Posterior Tibial (L), Dorsalis Pedis (L) GI/Abdominal: Normal Bowel Sounds, Soft, Tender (generalized tenderness) Extremities: Other (left knee is swollen, no redness ) Course - Vital Signs Last Recorded V/S: Last Vital Signs Temp 36.5 C 12/12/17 08:46 Pulse 86 12/12/17 08:46 Resp 16 12/12/17 08:46 BP 104/70 12/12/17 08:46 Pulse Ox 100 12/12/17 08:46 - Orders/Labs/Meds Orders: Active Orders 24 hr Category Date Time Status Peripheral IV Care [RC] . DIRECTED Care 12/12/17 09:26 Active CELL COUNT,BODY FLUID [BF] Stat Lab 12/12/17 11:00 COMP CULTURE BODY FLUID + SMEAR [RM] Stat Lab 12/12/17 11:00 Ordered PROTEIN,BODY FLUID [BF] Stat Lab 12/12/17 11:00 COMP SYNOVIAL CRYSTALS Stat Lab 12/12/17 11:00 Received Joint Aspiration Panel Reflex [OM.PC] Click To Edit Oth 12/12/17 09:54 Ordered Peripheral IV Insertion Adult [OM.PC] Stat Oth 12/12/17 09:24 Ordered Labs: Laboratory Tests 12/12/17 12/12/17 12/12/17 Range/Units 10:05 10:05 10:05 WBC 8.14 (3.98-10.04) K/mm3 RBC 4.38 (3.98-5.22) M/mm3 Hgb 13.8 (11.2-15.7) gm/L Hct 42.5 (34.1-44.9) % MCV 97.0 H (79.4-94.8) fl MCH 31.5 (25.6-32.2) pg MCHC 32.5 (32.2-35.5) g/dl RDW Std Deviation 41.8 (36.4-46.3) fL Plt Count 233 (182-369) K/mm3 MPV 10.4 (9.4-12.3) fl Neutrophils % (Manual) 69 H (40-60) % Band Neutrophils % 0 (0-10) % Lymphocytes % (Manual) 24 (20-40) % Atypical Lymphs % 0 % Monocytes % (Manual) 2 (2-10) % Eosinophils % (Manual) 5 (0.7-5.8) % Basophils % (Manual) 0 L (0.1-1.2) Platelet Estimate Adequate RBC Morph Comment Normal ESR 16 (0-20) mm/hr Sodium 139 (136-145) mEq/L Potassium 3.8 (3.5-5.1) mEq/L Chloride 105 (98-107) mEq/L Carbon Dioxide 24 (21-32) mEq/L Anion Gap 13.8 (5-15) BUN 24 H (7-18) mg/dL Creatinine 0.9 (0.55-1.02) mg/dL Est Cr Clr Drug Dosing 61.52 mL/min Estimated GFR (MDRD) > 60 (>60) mL/min BUN/Creatinine Ratio 26.7 H (14-18) Glucose 85 (74-106) mg/dL Calcium 9.1 (8.5-10.1) mg/dL Total Bilirubin 0.3 (0.2-1.0) mg/dL AST 19 (15-37) U/L ALT 40 (14-59) U/L Alkaline Phosphatase 36 L (46-116) U/L C-Reactive Protein 0.2 (<1.0) mg/dL Total Protein 6.8 (6.4-8.2) g/dl Albumin 3.5 (3.4-5.0) g/dl Globulin 3.3 gm/dL Albumin/Globulin Ratio 1.1 (1-2) Body Fluid Site Fluid Type Fluid Volume ML Fluid Color Fluid Appearance Fluid WBC (0.20-0.60) k/mm*3 Fluid RBC (0.00-0.010) 10*6/uL Fluid Diff Comment Fluid Seg Neutrophils (0-25) % Fluid Lymphocytes (0-78) % Fluid Monocytes (0-71) % Fl Polymorphonucl Cell Fluid Macrophages Fld Meso/Macro/Monocyte Fluid Crystals Fluid Total Protein gm/dl 12/12/17 Range/Units 11:00 WBC (3.98-10.04) K/mm3 RBC (3.98-5.22) M/mm3 Hgb (11.2-15.7) gm/L Hct (34.1-44.9) % MCV (79.4-94.8) fl MCH (25.6-32.2) pg MCHC (32.2-35.5) g/dl RDW Std Deviation (36.4-46.3) fL Plt Count (182-369) K/mm3 MPV (9.4-12.3) fl Neutrophils % (Manual) (40-60) % Band Neutrophils % (0-10) % Lymphocytes % (Manual) (20-40) % Atypical Lymphs % % Monocytes % (Manual) (2-10) % Eosinophils % (Manual) (0.7-5.8) % Basophils % (Manual) (0.1-1.2) Platelet Estimate RBC Morph Comment ESR (0-20) mm/hr Sodium (136-145) mEq/L Potassium (3.5-5.1) mEq/L Chloride (98-107) mEq/L Carbon Dioxide (21-32) mEq/L Anion Gap (5-15) BUN (7-18) mg/dL Creatinine (0.55-1.02) mg/dL Est Cr Clr Drug Dosing mL/min Estimated GFR (MDRD) (>60) mL/min BUN/Creatinine Ratio (14-18) Glucose (74-106) mg/dL Calcium (8.5-10.1) mg/dL Total Bilirubin (0.2-1.0) mg/dL AST (15-37) U/L ALT (14-59) U/L Alkaline Phosphatase (46-116) U/L C-Reactive Protein (<1.0) mg/dL Total Protein (6.4-8.2) g/dl Albumin (3.4-5.0) g/dl Globulin gm/dL Albumin/Globulin Ratio (1-2) Body Fluid Site Left knee Fluid Type Synovial fluid Fluid Volume 40 ML Fluid Color Yellow Fluid Appearance Cloudy Fluid WBC 1.35 H (0.20-0.60) k/mm*3 Fluid RBC 0.004 (0.00-0.010) 10*6/uL Fluid Diff Comment Not Reportable Fluid Seg Neutrophils 24.0 (0-25) % Fluid Lymphocytes 40.0 (0-78) % Fluid Monocytes 8.0 (0-71) % Fl Polymorphonucl Cell Not Reportable Fluid Macrophages 28 Fld Meso/Macro/Monocyte 0 Fluid Crystals Cancelled Fluid Total Protein 4.3 gm/dl Meds: Medications Discontinued Medications Generic Name Dose Route Start Last Admin Trade Name Freq PRN Reason Stop Dose Admin Bupivacaine HCl 10 ml 12/12/17 09:54 12/12/17 11:10 Sensorcaine-Mpf 0.5% INJECT 12/12/17 09:55 10 ml ONETIME ONE Administration Bupivacaine HCl Confirm 12/12/17 11:09 Sensorcaine-Mpf 0.5% Administered 12/12/17 11:10 Dose 10 ml .ROUTE .STK-MED ONE Ketorolac Tromethamine 30 mg 12/12/17 09:39 12/12/17 09:45 Toradol IVPUSH 12/12/17 09:40 30 mg ONETIME ONE Administration Sodium Chloride 10 ml 12/12/17 09:25 12/12/17 09:46 Saline Flush FLUSH 10 ml ASDIRECTED PRN Administration Keep Vein Open Triamcinolone Acetonide 40 mg 12/12/17 09:53 12/12/17 11:10 Kenalog-40 INJECT 12/12/17 09:54 40 mg ONETIME ONE Administration Departure - Departure Disposition: Home, Self-Care 01 Clinical Impression: Effusion of left knee joint - Discharge Information Instructions: Knee Effusion, [id number] Referrals: Marly Tompkins NP [Primary Care Provider] - Forms: ED Department Discharge, ED Return to Work/School Form Additional Instructions: Evaluation the emergency room today in regards to large effusion involving the left knee that developed after last Synvisc injection into the knee. The fact that it's been 10 days since injection is highly suggestive of a allergic response to the Synvisc which I have seen on multiple occasions. Interestingly tapping the true joint did not result in any synovial fluid. Most of the synovial fluid on ultrasound was trapped within the suprapatellar pouch therefore unfortunately required a second arthrocentesis with removal of synovial fluid from the suprapatellar recess. This was analyzed in the lab and shows a large amount of white cells characteristic of inflammation but no bacteria to suggest any infective process. I did inject the knee joint with 40 mg of Kenalog which is a steroid which will hopefully reduce the inflammation within the knee. Suggest elevating the leg is much as possible ice packs as needed to the knee and pain medication such as Motrin Tylenol as required. Tentatively may to return to work on Saturday .If not then follow-up with personal care provider. - My Orders Last 24 Hours: My Active Orders 12/12/17 09:54 Joint Aspiration Panel Reflex [OM.PC] Click To Edit 12/12/17 11:00 CELL COUNT,BODY FLUID [BF] Stat CULTURE BODY FLUID + SMEAR [RM] Stat PROTEIN,BODY FLUID [BF] Stat SYNOVIAL CRYSTALS Stat - Assessment/Plan Last 24 Hours: My Active Orders 12/12/17 09:54 Joint Aspiration Panel Reflex [OM.PC] Click To Edit 12/12/17 11:00 CELL COUNT,BODY FLUID [BF] Stat CULTURE BODY FLUID + SMEAR [RM] Stat PROTEIN,BODY FLUID [BF] Stat SYNOVIAL CRYSTALS Stat <Amado Welch - Last Filed: 12/12/17 18:51> ED HPI GENERAL MEDICAL PROBLEM - History of Present Illness INITIAL COMMENTS - FREE TEXT/NARRATIVE: Patient has had multiple Synvisc injections into the left knee alternating with steroid injections in an effort to stave off total knee replacement. The knee has been very swollen since the last Synvisc shot with the inflammation starting the day after the last Synvisc injection. She states 4 days off of work help to reduce some of the swelling with ice and elevation she tried to return to work today but is unable to carry out her work due to pain in her knee. Still has marked residual swelling of the left knee. Onset: Sudden Onset Date: 12/02/17 Duration: Hour(s): (Started to have swelling in her knee within the first 12-24 hours of the last Synvisc injection.) Location: Reports: Lower Extremity, Left (Left knee.) Quality: Reports: Ache, Throbbing Severity: Moderate Improves with: Reports: Other Worsens with: Reports: Movement (Rest and elevation and ice has helped reduce some of the swelling but a persistent days later.) Context: Reports: Other (Problem started after last Synvisc injection to the left knee which has degenerative arthritic changes . She reports previous partial medial meniscectomy 20 years ago.). Denies: Activity, Exercise ( Weightbearing makes pain worse), Lifting, Sick Contact Associated Symptoms: Reports: Other (Feels a bit fluids. Thought she was running a low-grade fever yesterday.) Treatments DISTRIBUTION SPECIALIST: Reports: Acetaminophen (She took Tylenol this morning at about 0700 hrs.) Past Medical History Musculoskeletal History: Reports: Osteoarthritis (Left knee) ED JOINT ASPIRATION PROCEDURE - Joint Apsiration/Arthrocentesis Site: Left knee. She has a large collection of fluid in the suprapatellar recess Skin prep: Chlorhexidine (Hibiciens) (Left knee) Local Anesthesia - Bupivicaine (Marcaine): 0.5% Plain Local Anesthetic Volume: Other (10 mL) Aspiration needle size: 18g Aspirate appearance: serous Aspirate amount in cc's: 40 Joint injection: marcaine, amount: (10 mils), other and amount: (Kenalog 40 mg) Dressing: adhesive dressing Complications: No Course - Orders/Labs/Meds Labs: Laboratory Tests 12/12/17 12/12/17 12/12/17 Range/Units 10:05 10:05 10:05 WBC 8.14 (3.98-10.04) K/mm3 RBC 4.38 (3.98-5.22) M/mm3 Hgb 13.8 (11.2-15.7) gm/L Hct 42.5 (34.1-44.9) % MCV 97.0 H (79.4-94.8) fl MCH 31.5 (25.6-32.2) pg MCHC 32.5 (32.2-35.5) g/dl RDW Std Deviation 41.8 (36.4-46.3) fL Plt Count 233 (182-369) K/mm3 MPV 10.4 (9.4-12.3) fl Neutrophils % (Manual) 69 H (40-60) % Band Neutrophils % 0 (0-10) % Lymphocytes % (Manual) 24 (20-40) % Atypical Lymphs % 0 % Monocytes % (Manual) 2 (2-10) % Eosinophils % (Manual) 5 (0.7-5.8) % Basophils % (Manual) 0 L (0.1-1.2) Platelet Estimate Adequate RBC Morph Comment Normal ESR 16 (0-20) mm/hr Sodium 139 (136-145) mEq/L Potassium 3.8 (3.5-5.1) mEq/L Chloride 105 (98-107) mEq/L Carbon Dioxide 24 (21-32) mEq/L Anion Gap 13.8 (5-15) BUN 24 H (7-18) mg/dL Creatinine 0.9 (0.55-1.02) mg/dL Est Cr Clr Drug Dosing 61.52 mL/min Estimated GFR (MDRD) > 60 (>60) mL/min BUN/Creatinine Ratio 26.7 H (14-18) Glucose 85 (74-106) mg/dL Calcium 9.1 (8.5-10.1) mg/dL Total Bilirubin 0.3 (0.2-1.0) mg/dL AST 19 (15-37) U/L ALT 40 (14-59) U/L Alkaline Phosphatase 36 L (46-116) U/L C-Reactive Protein 0.2 (<1.0) mg/dL Total Protein 6.8 (6.4-8.2) g/dl Albumin 3.5 (3.4-5.0) g/dl Globulin 3.3 gm/dL Albumin/Globulin Ratio 1.1 (1-2) Body Fluid Site Fluid Type Fluid Volume ML Fluid Color Fluid Appearance Fluid WBC (0.20-0.60) k/mm*3 Fluid RBC (0.00-0.010) 10*6/uL Fluid Diff Comment Fluid Seg Neutrophils (0-25) % Fluid Lymphocytes (0-78) % Fluid Monocytes (0-71) % Fl Polymorphonucl Cell Fluid Macrophages Fld Meso/Macro/Monocyte Fluid Crystals Fluid Total Protein gm/dl //18 Range/Units 11:00 WBC (3.98-10.04) K/mm3 RBC (3.98-5.22) M/mm3 Hgb (11.2-15.7) gm/L Hct (34.1-44.9) % MCV (79.4-94.8) fl MCH (25.6-32.2) pg MCHC (32.2-35.5) g/dl RDW Std Deviation (36.4-46.3) fL Plt Count (182-369) K/mm3 MPV (9.4-12.3) fl Neutrophils % (Manual) (40-60) % Band Neutrophils % (0-10) % Lymphocytes % (Manual) (20-40) % Atypical Lymphs % % Monocytes % (Manual) (2-10) % Eosinophils % (Manual) (0.7-5.8) % Basophils % (Manual) (0.1-1.2) Platelet Estimate RBC Morph Comment ESR (0-20) mm/hr Sodium (136-145) mEq/L Potassium (3.5-5.1) mEq/L Chloride (98-107) mEq/L Carbon Dioxide (21-32) mEq/L Anion Gap (5-15) BUN (7-18) mg/dL Creatinine (0.55-1.02) mg/dL Est Cr Clr Drug Dosing mL/min Estimated GFR (MDRD) (>60) mL/min BUN/Creatinine Ratio (14-18) Glucose (74-106) mg/dL Calcium (8.5-10.1) mg/dL Total Bilirubin (0.2-1.0) mg/dL AST (15-37) U/L ALT (14-59) U/L Alkaline Phosphatase (46-116) U/L C-Reactive Protein (<1.0) mg/dL Total Protein (6.4-8.2) g/dl Albumin (3.4-5.0) g/dl Globulin gm/dL Albumin/Globulin Ratio (1-2) Body Fluid Site Left knee Fluid Type Synovial fluid Fluid Volume 40 ML Fluid Color Yellow Fluid Appearance Cloudy Fluid WBC 1.35 H (0.20-0.60) k/mm*3 Fluid RBC 0.004 (0.00-0.010) 10*6/uL Fluid Diff Comment Not Reportable Fluid Seg Neutrophils 24.0 (0-25) % Fluid Lymphocytes 40.0 (0-78) % Fluid Monocytes 8.0 (0-71) % Fl Polymorphonucl Cell Not Reportable Fluid Macrophages 28 Fld Meso/Macro/Monocyte 0 Fluid Crystals Cancelled Fluid Total Protein 4.3 gm/dl - Radiology Interpretation Free Text/Narrative:: 46-year-old female presents to the ED due to persistent swelling and pain left knee. She reports she's been having alternating Synvisc and steroid injections to her left knee for over a year to try and stave off total knee replacement. She has fairly advanced degenerative arthritic changes in the knee. Last Synvisc injection was about 10 days ago. He states she developed almost immediate swelling in the left knee and the knee was perhaps 3 times normal size for at least 4-5 days. She took 4 days off of work iced it and elevated it which reduced the swelling somewhat. However since she is to return to work swelling has gradually increased again and she is finding it intolerable to work. She reported low-grade fever yesterday. Question is whether she was developing a septic joint. She therefore was told to come to the ED for further evaluation. Since its 10 days post Synvisc injection is still likely a reaction to the Synvisc. She does have at least 50-60 mils of fluid within the joint. I will aspirate what I can and send it for culture and Gram stain and white count etc. I will injected with 40 mg of Kenalog in an effort to reduce the inflammation inside the knee. - Re-Assessments/Exams Free Text/Narrative Re-Assessment/Exam: 12/12/17 11:18 joint aspiration left knee performed unfortunately twice. Initial aspiration in the true knee joint retrieved only about 1 mL of blood. No fluid was obtained. Ultrasound confirmed of the suprapatellar recess was right full of fluid. Therefore some patient tolerated second attempt at arthrocentesis with removal of approximately 35 mils of luci-colored fluid from the suprapatellar recess. This will be analyzed for crystals as well as culture and Gram stain. I suspect that her current knee inflammation is secondary to reaction to Synvisc. 12/12/17 12:09 Labs reveal a normal white count at 8.14 with 69% neutrophils and no bands reported. Hemoglobin is 13.8. MCV is mildly elevated at 97.0. Bili count is 233,000. Sedimentation rate was 16. Sodium is 139 with potassium of 3.8. Cord is 105 with a bicarbonate 24. And a gap is 13.8. BUNs 24. Creatinine is 0.9. Glucose is 85. Calcium is normal 9.1. Liver function normal. C-reactive protein is less than 0.2. Awaiting synovial fluid analysis i.e. particularly the Gram stain. 12/12/17 12:44 labs states it'll be of benefit 15 minutes or so before the Gram stain is available as the slides are still drying. 12/12/17 13:18 Synovial fluid analysis reveals an elevated white blood cell count as one might anticipate. The Gram stain is negative for any organisms. Culture will be pending. Patient will thus be discharged home. She'll be off work for the next couple of days tentatively be able to return to work on Saturday. She'll continue anti-inflammatories and Tylenol for pain as needed. Therefore effusion of the left knee appears to be a allergic reaction to Synvisc. She is advised to have no further Synvisc shots anywhere as she is at risk of developing further allergic reaction. Departure - Departure Time of Disposition: 13:19 Condition: Fair - My Orders Last 24 Hours: My Active Orders 12/12/17 09:54 Joint Aspiration Panel Reflex [OM.PC] Click To Edit 12/12/17 11:00 CELL COUNT,BODY FLUID [BF] Stat CULTURE BODY FLUID + SMEAR [RM] Stat PROTEIN,BODY FLUID [BF] Stat SYNOVIAL CRYSTALS Stat - Assessment/Plan Last 24 Hours: My Active Orders 12/12/17 09:54 Joint Aspiration Panel Reflex [OM.PC] Click To Edit 12/12/17 11:00 CELL COUNT,BODY FLUID [BF] Stat CULTURE BODY FLUID + SMEAR [RM] Stat PROTEIN,BODY FLUID [BF] Stat SYNOVIAL CRYSTALS Stat
[2017-12-12] MEDS ORDERED: Ketorolac 30 MG/ML SDV IVPUSH ONE (09:39)
[2017-12-12] MEDS ORDERED: Triamcinolone Acetonide 40 MG/ML 1 ML MDV INJECT ONE (09:53)
[2017-12-12] MEDS ORDERED: Bupivacaine 0.5% 10 ML SDV INJECT ONE (09:54)
[2017-12-12] MEDS ORDERED: Bupivacaine 0.5% 10 ML SDV ONE (11:09)
== END 2017-12-12 13:33 | disposition home or self-care (01) ==
LOC: JD.ED 08:42
DX: M25.462 Effusion, left knee (principal); E03.9 Hypothyroidism, unspecified; Z91.012 Allergy to eggs; Z88.2 Allergy status to sulfonamides; Z88.8 Allergy status to other drugs, medicaments and biological substances; Z91.018 Allergy to other foods; Z88.1 Allergy status to other antibiotic agents; Z79.899 Other long term (current) drug therapy
CPT/HCPCS: 20610; 36415; 80053; 84157; 85025; 85652; 86140; 87070; 87205; 89050; 89060; 96374; 99283; J1885; J3301; J7050; 99284

== ENCOUNTER 2018-05-09 11:34 | Emergency (ER) | payer MEDICARE, MEDICAID ==
[2018-05-09 11:52] VITALS: BP 119/87
--- NOTE | 2018-05-09 13:11 | EDM.PDOC ---
ED HPI GENERAL MEDICAL PROBLEM - General Chief Complaint: Respiratory Problem Stated Complaint: CHEST CONGESTION SORE THROAT AND THRUSH Time Seen by Provider: 05/09/18 12:17 Source of Information: Reports: Patient History Limitations: Reports: No Limitations - History of Present Illness INITIAL COMMENTS - FREE TEXT/NARRATIVE: Patient is a 47-year-old female who presents ED complaining of sinus congestion , runny nose, mild sore throat, and ear pain. Patient was recently treated for a sinus infection with clarithromycin completed to half weeks ago. States she only had little improvement with the antibiotic. Continue to have some sinus congestion, runny nose, and your discomfort with clear, green, brown sputum in the morning with waking up after clearing her throat. Again she states symptoms appear to be getting better until this past Saturday when they slightly worsened. She has a history of recurrent ear infections and has ear tubes in place bilaterally. States her son along with the whole football team had similar symptoms that have since resolved. She is currently taking Zyrtec and ipratropium spray for chronic rhinitis. She does have seasonal allergies. In addition she has a history of IBS and constipation and has been taking her linzess. States she has not had a normal bowel movement for was 2 weeks. She feels constipated and her stomach feels crampy and full. Again there is no fever , chills, chest pain, shortness of breath, nausea or vomiting, diarrhea, blood in her stool, dysuria, or any additional complaints. Ear Pain Score (Numeric/FACES): 10 - Related Data Allergies Allergy/AdvReac Type Severity Reaction Status Date / Time acetaminophen [From Percocet] Allergy Hives Verified 12/12/17 08:52 egg Allergy Cannot Verified 12/12/17 08:52 Remember hyaluronate sodium, Allergy Cannot Verified 02/13/18 07:48 stabilized Remember meperidine HCl [From Demerol] Allergy Hives Verified 12/12/17 08:52 oxycodone HCl [From Percocet] Allergy Hives Verified 12/12/17 08:52 peanut Allergy Anaphylactic Verified 12/12/17 08:52 Shock Sulfa (Sulfonamide Allergy Itching Verified 12/12/17 08:52 Antibiotics) wheat Allergy Joint Pain Verified 12/12/17 08:52 budesonide AdvReac Headache Verified 02/24/18 12:21 erythromycin base AdvReac Vomiting Verified 12/12/17 08:52 [Erythromycin Base] formoterol AdvReac Headache Verified 02/24/18 12:21 mold AdvReac Chills Verified 12/12/17 08:52 pollen extracts AdvReac Irritabilit Verified 12/12/17 08:52 y Home Meds: Home Meds Topiramate [Topamax] 200 mg PO BEDTIME 04/17/14 [History] Montelukast Sodium [Singulair] 10 mg PO DAILY 08/26/14 [History] Potassium Chloride 10 meq PO BID 01/16/15 [History] traZODone 200 mg PO BEDTIME 01/16/15 [History] EPINEPHrine [Epipen 2-Enrico] 0.3 mg IJ ASDIRECTED #1 ml 05/26/15 [Rx] Naltrexone 4.5 mg PO BEDTIME 05/29/16 [History] Albuterol Sulfate [Proair Hfa] 1 - 2 puff INH Q4H PRN 11/15/16 [History] Progesterone,Micronized [Crinone] 1 applic TOP DAILY 11/11/17 [History] Testosterone [Androgel] 1 applic TOP DAILY 11/11/17 [History] Cetirizine [ZyrTEC] 1 tab PO DAILY 12/12/17 [History] Past Medical History HEENT History: Reports: Allergic Rhinitis, Other (See Below) Other HEENT History: wears glasses;thrush Cardiovascular History: Reports: None Respiratory History: Reports: Asthma Gastrointestinal History: Reports: Irritable Bowel Syndrome Genitourinary History: Reports: UTI, Recurrent 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: Endometriosis Musculoskeletal History: Reports: Osteoarthritis Neurological History: Reports: Migraines, Seizure Psychiatric History: Reports: None Endocrine/Metabolic History: Reports: Hypothyroidism Hematologic History: Reports: None Immunologic History: Reports: None Oncologic (Cancer) History: Reports: None Dermatologic History: Reports: None - Past Surgical History Head Surgeries/Procedures: Reports: None HEENT Surgical History: Reports: Myringotomy w Tube(s), Tonsillectomy, Other ( See Below) Social & Family History - Family History Family Medical History: Noncontributory - Tobacco Use Smoking Status *Q: Never Smoker - Caffeine Use Caffeine Use: Reports: Coffee - Recreational Drug Use Recreational Drug Use: No - Living Situation & Occupation Living situation: Reports: Single, Alone Occupation: Employed ED ROS GENERAL - Review of Systems Review Of Systems: See Below Constitutional: Reports: Malaise, Decreased Appetite. Denies: Fever, Chills HEENT: Reports: Ear Pain, Rhinitis, Sinus Problem, Throat Pain, Throat Swelling Respiratory: Reports: Shortness of Breath, Cough, Sputum GI/Abdominal: Reports: Constipation, Nausea Musculoskeletal: Reports: No Symptoms Skin: Reports: No Symptoms Neurological: Reports: Headache (intermittent) ED EXAM, GENERAL - Physical Exam Exam: See Below Exam Limited By: No Limitations General Appearance: Alert, WD/WN, No Apparent Distress Eye Exam: Bilateral Eye: Normal Inspection, PERRL Ears: Normal External Exam, Normal Canal, Hearing Grossly Normal. No: Normal TMs (ear tubes in place. no drainage noted. no erythema. ) Nose: Nasal Swelling, Nasal Drainage, Clear Rhinorrhea Throat/Mouth: Normal Voice, No Airway Compromise, Other (Faint erythema to the posterior pharynx with postnasal drip present) Neck: Normal Inspection, Supple, Non-Tender, Full Range of Motion Respiratory/Chest: No Respiratory Distress, Lungs Clear, Normal Breath Sounds, No Accessory Muscle Use, Chest Non-Tender Cardiovascular: Normal Peripheral Pulses, Regular Rate, Rhythm, No Murmur Peripheral Pulses: 2+: Radial (R) GI/Abdominal: Soft, Non-Tender, No Organomegaly, No Distention, Abnormal Bowel Sounds (Hyperactive) Back Exam: Normal Inspection. No: CVA Tenderness (L), CVA Tenderness (R) Extremities: Normal Inspection Neurological: Alert, Oriented, CN II-XII Intact, Normal Cognition, No Motor/ Sensory Deficits Psychiatric: Normal Affect, Normal Mood Skin Exam: Warm, Dry, Intact, Normal Color, No Rash Course - Vital Signs Last Recorded V/S: Last Vital Signs Temp 97.8 F 05/09/18 11:51 Pulse 76 05/09/18 11:51 Resp 20 05/09/18 11:51 BP 119/87 05/09/18 11:51 Pulse Ox 98 05/09/18 11:51 - Orders/Labs/Meds Meds: Medications Discontinued Medications Generic Name Dose Route Start Last Admin Trade Name Freq PRN Reason Stop Dose Admin Magnesium Citrate 1 ml 05/09/18 14:14 05/09/18 14:18 Citrate Of Magnesia PO 05/09/18 14:15 296 ml ONETIME ONE Administration - Re-Assessments/Exams Free Text/Narrative Re-Assessment/Exam: I suspect this is a viral infection with recent exposure to sun and follow-up players with similar illness. I discussed with her symptomatic treatment. I have offered to obtain basic labs and CT of the maxillofacial/sinuses to evaluate for chronic sinusitis. Patient refused labs and would like to have the CT performed. Ct of the maxillofacial and sinus without contrast obtained. CT paranasal sinuses Technique: Multiple axial sections through the paranasal sinuses were obtained. Comparison: Previous CT sinus study of 09/19/16. Findings: Paranasal sinuses are clear. No mucosal thickening or air-fluid levels are seen. Previous surgery is noted. Ostiomeatal complexes are clear. Impression: 1. Previous surgery. 2. CT study of the paranasal sinuses is otherwise unremarkable. Discussed results of the CT with the patient. Suspect etiology of upper respiratory symptoms is viral. Patient also a history of celiac disease states she's been constipated recently. Has some slight discomfort to the epigastric region which is normal for her when she gets constipated. I offered further workup to which she did refuse this. Request something to help facilitate a BM. I provided a bottle of mag citrate to take home with the patient and with instructions to drink half of it right away. Wait a few hours and if no bowel movement take the other half this evening. She'll be off work for the next 2 days. We discussed starting MiraLAX one capful every day with juice and drinking plenty of water as well as utilizing prune juice as needed. Patient had no further questions concerns. Discharge instructions documented. The patient remained hemodynamically stable while under my care in the E.D. I discussed the concerning symptoms for which to returnto the E.D. with the patient. The patient verbalized understanding. All questions were answered. Departure - Departure Time of Disposition: 13:56 Disposition: Home, Self-Care 01 Condition: Good Clinical Impression: Viral upper respiratory tract infection with cough - Discharge Information Instructions: Viral Respiratory Infection, [id number] Referrals: Marly Tompkins NP [Primary Care Provider] - Forms: ED Department Discharge, ED Return to Work/School Form Additional Instructions: Continue taking all your home medications as prescribed. Suggest utilizing Afrin 1 spray to each nare twice a day for 3 days to help with sinus congestion. Push the fluids. Ensure adequate rest. Take Aleve or ibuprofen for discomfort. Suspect this is all viral and run its course of the next few days improving with no antibiotics. Please see her PCP this coming week if symptoms persist. Return to ED if he developed any new or worsening symptoms.
--- NOTE | 2018-05-09 14:08 | CT ---
CT paranasal sinuses Technique: Multiple axial sections through the paranasal sinuses were obtained. Comparison: Previous CT sinus study of 09/19/16. Findings: Paranasal sinuses are clear. No mucosal thickening or air-fluid levels are seen. Previous surgery is noted. Ostiomeatal complexes are clear. Impression: 1. Previous surgery. 2. CT study of the paranasal sinuses is otherwise unremarkable. Diagnostic code #1
[2018-05-09] MEDS ORDERED: Magnesium Citrate Solution 296 ML Bottle PO ONE (14:14)
== END 2018-05-09 14:25 | disposition home or self-care (01) ==
LOC: JD.ED 11:34
DX: J06.9 Acute upper respiratory infection, unspecified (principal); Z91.012 Allergy to eggs; Z88.8 Allergy status to other drugs, medicaments and biological substances; Z88.2 Allergy status to sulfonamides; Z79.899 Other long term (current) drug therapy
CPT/HCPCS: 70486; 99283; A9270

== ENCOUNTER 2018-12-30 20:34 | Emergency (ER) | payer BC, MEDICARE ==
[2018-12-30 20:44] VITALS: BP 114/87
[2018-12-30] MEDS ORDERED: LORazepam 0.5 MG Tab PO ONE (22:33)
--- NOTE | 2018-12-30 22:37 | EDM.PDOC ---
ED HPI GENERAL MEDICAL PROBLEM - General Chief Complaint: Lower Extremity Injury/Pain Stated Complaint: FOOT PAIN Time Seen by Provider: 12/30/18 20:54 Source of Information: Reports: Patient, RN Notes Reviewed - History of Present Illness INITIAL COMMENTS - FREE TEXT/NARRATIVE: 48-year-old female presents to the ED this evening bilateral foot and leg discomfort. Also having a lot of difficulty with stress, anxiety and difficulty sleeping. She states she has been having difficulty with her feet and legs for at least 6 months, maybe longer. He did see Dr. Briones, orthopedist in [place] not too long ago, was started on some physical therapy but so for that has not really been helping her. 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 His felt that she may have neuropathy but that has not been determined. She is not diabetic. Does not have history of hypertension or known peripheral vascular disease. No recent injury. She does have more difficulty with the left foot and leg than the right. She does have some discomfort with weightbearing but states when she tries to sleep than she does feel a lot of foot leg and ankle discomfort bilateral but more on the left. She' s been having difficulty sleeping for a long time. She has been on trazodone for about 10 years and and realizes that "she has gotten used to it". She will sleep for a while but then wake up and had severe difficulty going back to sleep. So is dealing with a lot of family stress right now and a lot of anxiety with that as well. Left Feet Pain Score (Numeric/FACES): 7 - Related Data Allergies Allergy/AdvReac Type Severity Reaction Status Date / Time acetaminophen [From Percocet] Allergy Hives Verified 12/12/17 08:52 egg Allergy Cannot Verified 12/12/17 08:52 Remember hyaluronate sodium, Allergy Cannot Verified 02/13/18 07:48 stabilized Remember meperidine HCl [From Demerol] Allergy Hives Verified 12/12/17 08:52 oxycodone HCl [From Percocet] Allergy Hives Verified 12/12/17 08:52 peanut Allergy Anaphylactic Verified 12/12/17 08:52 Shock Sulfa (Sulfonamide Allergy Itching Verified 12/12/17 08:52 Antibiotics) wheat Allergy Joint Pain Verified 12/12/17 08:52 budesonide AdvReac Headache Verified 02/24/18 12:21 erythromycin base AdvReac Vomiting Verified 12/12/17 08:52 [Erythromycin Base] formoterol AdvReac Headache Verified 02/24/18 12:21 mold AdvReac Chills Verified 12/12/17 08:52 pollen extracts AdvReac Irritabilit Verified 12/12/17 08:52 y Home Meds: Home Meds Topiramate [Topamax] 200 mg PO BEDTIME 04/17/14 [History] Montelukast Sodium [Singulair] 10 mg PO DAILY 08/26/14 [History] Potassium Chloride 10 meq PO BID 01/16/15 [History] traZODone 200 mg PO BEDTIME 01/16/15 [History] EPINEPHrine [Epipen 2-Enrico] 0.3 mg IJ ASDIRECTED #1 ml 05/26/15 [Rx] Naltrexone 4.5 mg PO BEDTIME 05/29/16 [History] Albuterol Sulfate [Proair Hfa] 1 - 2 puff INH Q4H PRN 11/15/16 [History] Progesterone,Micronized [Crinone] 1 applic TOP DAILY 11/11/17 [History] Testosterone [Androgel] 1 applic TOP DAILY 11/11/17 [History] Cetirizine [ZyrTEC] 1 tab PO DAILY 12/12/17 [History] LORazepam [Ativan] 0.5 mg PO QPM #14 tablet 12/30/18 [Rx] Past Medical History HEENT History: Reports: Allergic Rhinitis, Other (See Below) Other HEENT History: wears glasses;thrush Cardiovascular History: Reports: None Respiratory History: Reports: Asthma Gastrointestinal History: Reports: Irritable Bowel Syndrome Genitourinary History: Reports: UTI, Recurrent [employer] History: Reports: Endometriosis Musculoskeletal History: Reports: Osteoarthritis Neurological History: Reports: Migraines, Seizure Psychiatric History: Reports: None Endocrine/Metabolic History: Reports: Hypothyroidism Hematologic History: Reports: None Immunologic History: Reports: None Oncologic (Cancer) History: Reports: None Dermatologic History: Reports: None - Past Surgical History Head Surgeries/Procedures: Reports: None HEENT Surgical History: Reports: Myringotomy w Tube(s), Tonsillectomy, Other ( See Below) Social & Family History - Family History Family Medical History: Noncontributory - Tobacco Use Smoking Status *Q: Current Status Unknown - Caffeine Use Caffeine Use: Reports: Coffee - Living Situation & Occupation Living situation: Reports: Single, Alone Occupation: Employed Review of Systems - Review of Systems Review Of Systems: See Below Constitutional: Denies: Chills, Fever Eyes: Reports: No Symptoms Ears: Reports: No Symptoms Nose: Reports: No Symptoms Mouth/Throat: Reports: No Symptoms Respiratory: Denies: Shortness of Breath Cardiovascular: Denies: Chest Pain GI/Abdominal: Denies: Abdominal Pain, Nausea, Vomiting Musculoskeletal: Reports: Leg Pain, Foot Pain Skin: Denies: Rash Neurological: Reports: Numbness (Left foot) ED EXAM, GENERAL - Physical Exam Exam: See Below General Appearance: Alert, Anxious, Mild Distress Eye Exam: Bilateral Eye: PERRL Head: Atraumatic. No: Facial Swelling Neck: Supple Respiratory/Chest: No Respiratory Distress, Lungs Clear Cardiovascular: Regular Rate, Rhythm Extremities: Other (There is tenderness of the left foot dorsally and laterally , no visible swelling warmth or erythema of the foot or ankle, feet are warm bilaterally, good cap refill, sensation intact bilateral to scratch and touch). No: Leg Pain, Redness Neurological: Alert, Oriented, No Motor/Sensory Deficits, Other (Good toe strength bilateral, good straight leg raising strength bilateral) Skin Exam: Warm, Dry, Normal Color, No Rash Course - Vital Signs Last Recorded V/S: Last Vital Signs Temp 97.7 F 12/30/18 20:39 Pulse 71 12/30/18 20:39 Resp 18 12/30/18 20:39 BP 114/87 12/30/18 20:39 Pulse Ox 100 12/30/18 20:39 - Orders/Labs/Meds Labs: Laboratory Tests 12/30/18 12/30/18 12/30/18 Range/Units 21:40 21:40 21:40 WBC 5.51 (3.98-10.04) K/mm3 RBC 4.12 (3.98-5.22) M/mm3 Hgb 13.0 (11.2-15.7) gm/L Hct 39.0 (34.1-44.9) % MCV 94.7 (79.4-94.8) fl MCH 31.6 (25.6-32.2) pg MCHC 33.3 (32.2-35.5) g/dl RDW Std Deviation 41.9 (36.4-46.3) fL Plt Count 265 (182-369) K/mm3 MPV 10.1 (9.4-12.3) fl Neut % (Auto) 43.7 (34.0-71.1) % Lymph % (Auto) 38.1 (19.3-51.7) % Rains % (Auto) 12.9 H (4.7-12.5) % Eos % (Auto) 4.7 (0.7-5.8) Baso % (Auto) 0.2 (0.1-1.2) % Neut # (Auto) 2.41 (1.56-6.13) K/mm3 Lymph # (Auto) 2.10 (1.18-3.74) K/mm3 Rains # (Auto) 0.71 H (0.24-0.36) K/mm3 Eos # (Auto) 0.26 (0.04-0.36) K/mm3 Baso # (Auto) 0.01 (0.01-0.08) K/mm3 Sodium 141 (136-145) mEq/L Potassium 3.3 L (3.5-5.1) mEq/L Chloride 108 H (98-107) mEq/L Carbon Dioxide 22 (21-32) mEq/L Anion Gap 14.3 (5-15) BUN 19 H (7-18) mg/dL Creatinine 0.8 (0.55-1.02) mg/dL Est Cr Clr Drug Dosing 71.43 mL/min Estimated GFR (MDRD) > 60 (>60) mL/min BUN/Creatinine Ratio 23.8 H (14-18) Glucose 77 (74-106) mg/dL Calcium 9.5 (8.5-10.1) mg/dL Magnesium 1.9 (1.8-2.4) mg/dl Total Bilirubin 0.3 (0.2-1.0) mg/dL AST 30 (15-37) U/L ALT 55 (14-59) U/L Alkaline Phosphatase 45 L (46-116) U/L Total Protein 6.7 (6.4-8.2) g/dl Albumin 3.6 (3.4-5.0) g/dl Globulin 3.1 gm/dL Albumin/Globulin Ratio 1.2 (1-2) Meds: Medications Discontinued Medications Generic Name Dose Route Start Last Admin Trade Name Emma PRN Reason Stop Dose Admin Lorazepam 0.5 mg 12/30/18 22:33 12/30/18 22:56 Ativan PO 12/30/18 22:34 0.5 mg ONETIME ONE Administration - Re-Assessments/Exams Free Text/Narrative Re-Assessment/Exam: 12/31/18 00:33 Potassium did come back mildly low at 3.3, chemistries otherwise relatively normal, discharge instructions as documented. Departure - Departure Time of Disposition: 22:32 Disposition: Home, Self-Care 01 Condition: Fair Clinical Impression: Foot pain, bilateral, Hypokalemia Leg pain Qualifiers: Laterality: bilateral Qualified Code(s): M79.604 - Pain in right leg Insomnia Qualifiers: Insomnia type: unspecified Qualified Code(s): G47.00 - Insomnia, unspecified - Discharge Information Prescriptions: LORazepam [Ativan] 0.5 mg PO QPM #14 tablet Instructions: Hypokalemia, Foot Pain Referrals: Marly Tompkins NP [Primary Care Provider] - Forms: ED Department Discharge Additional Instructions: Continue current medications, increase potassium supplement to twice daily for the next 5 days and then back to once daily, bananas are very high in potassium try eat one or 2 bananas per day. Other fruit and vegetables as well are high in potassium. Try start taking a melatonin supplement about an hour before bedtime 5-10 mg recommended and that should help you sleep better, consider some type of soft background noise as well to help you sleep better. For now Ativan 0.5 mg by mouth about an hour before bedtime to help you sleep and also for stress and anxiety. Try follow-up with Dr. Orona in about 5-7 days or next available appointment.
== END 2018-12-30 23:13 | disposition home or self-care (01) ==
LOC: JD.ED 20:34
DX: M79.672 Pain in left foot (principal); M79.671 Pain in right foot; E87.6 Hypokalemia; M79.604 Pain in right leg; G47.00 Insomnia, unspecified; J45.909 Unspecified asthma, uncomplicated; E03.9 Hypothyroidism, unspecified; Z91.012 Allergy to eggs; Z79.899 Other long term (current) drug therapy; Z88.1 Allergy status to other antibiotic agents; Z88.8 Allergy status to other drugs, medicaments and biological substances
CPT/HCPCS: 36415; 80053; 83735; 85025; 99283; A9270

== ENCOUNTER 2022-11-13 15:43 | Emergency (ER) | payer OTHER, MEDICAID ==
[2022-11-13 16:11] VITALS: BP 135/99; PULSE 80
[2022-11-13] MEDS ORDERED: Ondansetron 4 MG/2 ML SDV IVPUSH ONE (16:29)
[2022-11-13] MEDS ORDERED: Ketorolac 30 MG/ML SDV IVPUSH STA (16:29)
[2022-11-13] MEDS ORDERED: HYDROmorphone 0.5 MG/0.5 ML Syringe IVPUSH ONE (16:29)
[2022-11-13] MEDS ORDERED: Sodium Chloride 0.9% 1,000 ML IV SCH (16:30)
[2022-11-13] MEDS ORDERED: Iopamidol 612 MG/ML 100 ML Bottle IVPUSH ONE (18:03)
[2022-11-13] MEDS ORDERED: Sodium Chloride 0.9% 10 ML Syringe FLUSH ONE (18:03)
== END 2022-11-13 20:53 | disposition home or self-care (01) ==
LOC: JD.ED 15:43
DX: N20.0 Calculus of kidney (principal); J45.909 Unspecified asthma, uncomplicated; Z79.899 Other long term (current) drug therapy; Z88.6 Allergy status to analgesic agent; Z91.012 Allergy to eggs; Z88.8 Allergy status to other drugs, medicaments and biological substances; Z88.5 Allergy status to narcotic agent; Z91.010 Allergy to peanuts; Z88.2 Allergy status to sulfonamides; Z91.018 Allergy to other foods; Z88.1 Allergy status to other antibiotic agents; Z91.048 Other nonmedicinal substance allergy status; Z90.49 Acquired absence of other specified parts of digestive tract; Z90.710 Acquired absence of both cervix and uterus
CPT/HCPCS: 36415; 74177; 80053; 81001; 83690; 83735; 85007; 85027; 93005; 96374; 96375; 99284; J1170; J1885; J2405; J3490; J7030; Q9967

== ENCOUNTER 2024-02-17 05:50 | Day surgery (SDC) | payer OTHER ==
[2024-02-17] MEDS: Lactated Ringers 1,000 ML IV SCH (06:15)
[2024-02-17] MEDS ORDERED: Lactated Ringers 1,000 ML ONE (06:16)
[2024-02-17] MEDS ORDERED: Propofol 200 MG/20 ML SDV ONE (06:16)
[2024-02-17] MEDS ORDERED: ceFAZolin 2 GM Vial ONE (06:16)
[2024-02-17] MEDS ORDERED: fentaNYL 100 MCG/2 ML SDV ONE (06:16)
[2024-02-17] MEDS ORDERED: Midazolam 1 MG/ML 2 ML SDV ONE ×2 (06:16→07:39)
[2024-02-17] MEDS ORDERED: Sodium Chloride 0.9% 10 ML Syringe FLUSH PRN (07:00)
[2024-02-17] MEDS ORDERED: Sodium Chloride 0.9% 10 ML Syringe FLUSH SCH (07:00)
[2024-02-17] MEDS ORDERED: Ondansetron 4 MG/2 ML SDV ONE (07:15)
[2024-02-17] MEDS ORDERED: Lidocaine 1% 4 ML ONE (07:18)
[2024-02-17] MEDS ORDERED: HYDROmorphone 0.5 MG/0.5 ML Syringe IVPUSH PRN (08:01)
[2024-02-17] MEDS ORDERED: fentaNYL 100 MCG/2 ML SDV IVPUSH PRN (08:01)
[2024-02-17] MEDS: Vancomycin 1 GM SDV ONE (08:10)
[2024-02-17] MEDS: Tranexamic Acid 1,000 MG/10 ML Vial ONE (08:10)
[2024-02-17] MEDS: Morphine 8 MG, EPINEPHrine 0.3 MG, Cefuroxime 750 MG, Ketorolac 30 MG, Sodium Chloride ... PRN (08:10)
[2024-02-17] MEDS: traMADol 50 MG Tab PO PRN (10:08)
[2024-02-17] MEDS: Ondansetron 4 MG/2 ML SDV IVPUSH PRN (10:57)
[2024-02-17 12:46] VITALS: BP 110/70; PULSE 69
[2024-02-17] MEDS: Acetaminophen/HYDROcodone 325-5 MG Tab PO ONE (13:15)
[2024-02-17] MEDS: Famotidine 20 MG Tab PO ONE (13:20)
== END 2024-02-17 13:30 | disposition home or self-care (01) ==
LOC: JD.SDS 05:50
PROVIDERS: ATTEND Orthopaedic Surgery
DX: M16.11 Unilateral primary osteoarthritis, right hip (principal); J45.909 Unspecified asthma, uncomplicated; F32.A Depression, unspecified; I10 Essential (primary) hypertension; F41.9 Anxiety disorder, unspecified; Z79.899 Other long term (current) drug therapy; Z88.2 Allergy status to sulfonamides; Z88.1 Allergy status to other antibiotic agents; Z88.5 Allergy status to narcotic agent; Z91.040 Latex allergy status; Z91.012 Allergy to eggs; Z91.010 Allergy to peanuts
CPT/HCPCS: 0055T; 27130; 36415; 73501; 86850; 86900; 86901; 97110; 97161; A9270; C1713; C1776; J0171; J0690; J0697; J1885; J2250; J2270; J2405; J2704; J3370; J7120; 01214; J3010; J3490